=== PATIENT | female | born 1965 | race Caucasian/White ===

== ENCOUNTER 2021-10-13 10:33 | Outpatient (CLI) | payer OTHER, SELFPAY ==
[2021-10-13 19:55] LABS: Cholesterol* 220 mg/dL (90-199)
[2021-10-13 19:56] LABS: HDL Cholesterol* 40 mg/dL (>=50); LDL Cholesterol Calculated 149 mg/dL (<100)
[2021-10-14 19:22] LABS: Triglycerides* 153 mg/dL (40-149)
[2021-10-16 04:29] LABS: Vitamin D, 1,25-Dihydroxy 55.6 pg/mL (19.9-79.3)
[2021-10-16 16:28] LABS: Glucose* 109 mg/dL (60-115)
== END 2021-10-13 10:34 | disposition home or self-care (01) ==
PROVIDERS: PCP Physician Assistant Medical; Visit Provider Physician Assistant Medical
DX: Z00.00 Encounter for general adult medical examination without abnormal findings (principal); E55.9 Vitamin D deficiency, unspecified; E78.5 Hyperlipidemia, unspecified; R79.0 Abnormal level of blood mineral; E53.8 Deficiency of other specified B group vitamins; E66.9 Obesity, unspecified
CPT/HCPCS: 80061; 82652; 82947; 87624; 88175

== ENCOUNTER 2024-01-29 10:09 | Outpatient (CLI) | payer OTHER, SELFPAY | END 2024-01-29 10:10 | disposition home or self-care (01) | LOC: NFLDREF 01-31 07:51 | PROVIDERS: PCP Physician Assistant Medical; Referring Provider Physician Assistant Medical; Visit Provider Physician Assistant Medical | DX: Z00.00 Encounter for general adult medical examination without abnormal findings (principal); I10 Essential (primary) hypertension; E78.5 Hyperlipidemia, unspecified; R73.03 Prediabetes; G89.29 Other chronic pain; K22.0 Achalasia of cardia; J45.909 Unspecified asthma, uncomplicated; N89.8 Other specified noninflammatory disorders of vagina; M54.50 Low back pain, unspecified; F43.9 Reaction to severe stress, unspecified | CPT/HCPCS: 80053; 80061; 84443 ==